=== PATIENT | male | born 1970 | race Caucasian/White ===

== ENCOUNTER → 2019-06-19 09:51 | Outpatient (CLI) | payer OTHER, MEDICARE, SELFPAY ==
--- NOTE | ~2019-06-19 | XR_ITS ---
XR knee RT min 4V DATE: 06/19/2019 10:42 INDICATION: Right knee pain TECHNIQUE: [place], standing AP, PA and lateral views COMPARISON: None FINDINGS: There is moderate tricompartment osteoarthritis. No fracture or dislocation or joint effusion, periosteal reaction or bone destruction, radiopaque int ra-articular loose body or chondrocalcinosis is detected. IMPRESSION: Tricompartment osteoarthritis Reviewed, dictated and finalized at location B. UNTS PAYABLE TECHNICIAN
--- NOTE | ~2019-06-19 | XR_ITS ---
XR shoulder RT min 2V DATE: 06/19/2019 10:42 INDICATION: Right shoulder pain TECHNIQUE: 4 views COMPARISON: None FINDINGS: No recent fracture or dislocation, periosteal reaction or bone destruction. There is osteochondroma or less likely old fracture deformity of the proximal right humeral shaft. There is benign focal 4 x 8.5 mm calcification. IMPRESSION: Probable benign osteochondroma of proximal right humeral shaft Reviewed, dictated and finalized at location B. TING CODER
--- NOTE | ~2019-06-19 | XR_ITS ---
XR knee LT min 4V DATE: 06/19/2019 10:42 INDICATION: Right knee pain TECHNIQUE: Standing AP, PA, lateral views. [place] view. COMPARISON: None FINDINGS: There is severe loss of height at the medial compartment and mild jaja-articular spurring. There is lateral jaja-articular spurring of the lateral compartment. There is jaja-articular spurring of the patellofemoral joint. No fracture or dislocation, periosteal reaction or bone destruction. Mild suprapatellar joint effusion. No radiopaque intra-articular loose body or chondrocalcinosis. IMPRESSION: Tricompartment osteoarthritis and mild joint effusion Reviewed, dictated and finalized at location B. OYEE RELATIONS ASSISTANT
== END ==
PROVIDERS: PCP Family Medicine; Visit Provider Physician Assistant
DX: M25.561 Pain in right knee (principal); M25.511 Pain in right shoulder; M17.0 Bilateral primary osteoarthritis of knee; M25.462 Effusion, left knee; D16.01 Benign neoplasm of scapula and long bones of right upper limb
CPT/HCPCS: 73030; 73564

== ENCOUNTER → 2020-02-10 14:06 | Outpatient (CLI) | payer OTHER, MEDICARE, SELFPAY ==
--- NOTE | ~2020-02-10 | XR_ITS ---
EXAMINATION: XR chest 2V EXAM DATE: 02/10/2020 14:22 INDICATION: Therapeutic drug monitoring. TECHNIQUE: Frontal and lateral projections of the chest obtained and reviewed. Comparison is made to prior examination from 09/30/2018. FINDINGS: The lungs are clear. There are no pleural effusions. The cardiomediastinal silhouette is within normal limits. There is no pneumothorax suspected. The bones and soft tissues are unremarkab le. IMPRESSION: Unremarkable chest x-ray exam. Reviewed, dictated and finalized at location A.
== END ==
PROVIDERS: PCP Family Medicine; Visit Provider Internal Medicine Rheumatology
DX: Z51.81 Encounter for therapeutic drug level monitoring (principal)
CPT/HCPCS: 71046

== ENCOUNTER → 2020-08-09 13:56 | Outpatient (CLI) | payer OTHER, MEDICARE, SELFPAY ==
--- NOTE | ~2020-08-09 | XR_ITS ---
EXAMINATION: XR elbow RT min 3V DATE: 08/09/2020 14:17 INDICATION: Right elbow pain. Strain of unspecified muscle, fascia, and tendon. TECHNIQUE: 4 views of right elbow were obtained. COMPARISON: None. FINDINGS: Bone alignment is normal. No fracture. There is mild elbow joint osteoarthritis. There are enthesophytes at the medial and lateral humeral epicondyles. No elbow joint effusion. IMPRESSION: 1. Mild elbow joint osteoarthritis. Reviewed, dictated and finalized at location A.
--- NOTE | ~2020-08-09 | XR_ITS ---
XR hip BI wo pelvis DATE: 08/09/2020 14:17 INDICATION: Hip pain TECHNIQUE: AP and lateral views of each hip COMPARISON: None FINDINGS: Bilateral posterior lower lumbar surgical fusion. Mild bilateral hip osteoarthritis. No fracture or dislocation, avascular necrosis or bone destruction of either hip is detected. The pubic symphysis and sacroiliac joints are intact. IMPRESSION: Status post posterior lower lumbar spinal fusion Mild bilateral hip osteoarthritis Reviewed, dictated and finalized at location A.
--- NOTE | ~2020-08-09 | XR_ITS ---
EXAMINATION: XR shoulder RT min 2V DATE: 08/09/2020 14:17 INDICATION: Strain images of unspecified muscle, fascia, and tendon. TECHNIQUE: 4 views of right shoulder were obtained. COMPARISON: Right shoulder radiographs 06/19/2019 FINDINGS: Bone alignment is normal. There is an old healed fracture of proximal right humeral diaphys is. No acute fracture. There is mild osteoarthritis of glenohumeral joint characterized by tiny osteo phytes. Acromioclavicular joint is normal. IMPRESSION: 1. Mild glenohumeral joint osteoarthritis. Reviewed, dictated and finalized at location A.
== END ==
PROVIDERS: PCP Family Medicine; Visit Provider Family Medicine
DX: E66.9 Obesity, unspecified (principal); M75.81 Other shoulder lesions, right shoulder; S46.911A Strain of unspecified muscle, fascia and tendon at shoulder and upper arm level, right arm, initial encounter; X58.XXXA Exposure to other specified factors, initial encounter; M16.0 Bilateral primary osteoarthritis of hip; M19.011 Primary osteoarthritis, right shoulder; M19.021 Primary osteoarthritis, right elbow
CPT/HCPCS: 73030; 73080; 73521

== ENCOUNTER → 2020-10-19 16:41 | Outpatient (CLI) | payer OTHER, MEDICARE, SELFPAY ==
--- NOTE | ~2020-10-19 | XR_ITS ---
EXAMINATION: XR toe 1st RT min 2V DATE: 10/19/2020 17:45 INDICATION: Right great toe pain. TECHNIQUE: 3 views of right great toe were obtained. COMPARISON: Right foot radiographs 11/26/2013 FINDINGS: Bone alignment is normal. No acute fracture. There are changes of arthrodesis procedure of first metatarsophalangeal joint with dorsal plate and multiple screws. Partially visualized is a scre w in third proximal, middle, and distal phalanges. Partially visualized is an arthrodesis procedure o f the subtalar joint without visible bridging bone. There is lucency around the fixation screw, consi stent with loosening. There is mild osteoarthritis of talonavicular joint. IMPRESSION: 1. Arthrodesis of first metatarsophalangeal joint. 2. Partially visualized arthrodesis procedure of the subtalar joint with lucency around the calcaneal screw, consistent with loosening. Reviewed, dictated and finalized at location A. IMPRESSION: 1. Arthrodesis of first metatarsophalangeal joint. 2. Partially visualized arthrodesis procedure of the subtalar joint with lucenc y around the calcaneal screw, consistent with loosening.
== END ==
PROVIDERS: PCP Family Medicine; Visit Provider Family Medicine
DX: M79.674 Pain in right toe(s) (principal)
CPT/HCPCS: 73660

== ENCOUNTER → 2021-02-14 14:38 | Outpatient (CLI) | payer OTHER, MEDICARE, SELFPAY ==
--- NOTE | ~2021-02-14 | XR_ITS ---
EXAMINATION: XR chest 2V 02/14/2021 14:55 INDICATION: Therapeutic drug monitoring PROCEDURE: 2 view chest COMPARISON: Comparison to multiple prior studies sequentially, with oldest reviewed study dated 11/20. FINDINGS: The lungs are clear. The cardiomediastinal silhouette is within normal limits. There are no pleural effusions. There is no pneumothorax suspected. IMPRESSION: 1: NO ACUTE CARDIOPULMONARY DISEASE. Reviewed, dictated and finalized at location B.
== END ==
PROVIDERS: PCP Family Medicine; Visit Provider Internal Medicine Rheumatology
DX: Z51.81 Encounter for therapeutic drug level monitoring (principal)
CPT/HCPCS: 71046

== ENCOUNTER 2021-11-02 05:52 | Day surgery (SDC) | payer OTHER, MEDICARE, SELFPAY ==
[2021-10-20 14:16] VITALS: BMI 35.9
[2021-11-02 06:15] VITALS: BP 140/93; PULSE 89; RESP 20; TEMP 36.9; O2SAT 96
[2021-11-02] MEDS: LACTATED RINGERS 1,000 ML 30 ML IV CONT ×2 (06:40→08:03)
[2021-11-02 06:45] LABS: Glucose Point of Care 114 mg/dl (65-105)
--- NOTE | 2021-11-02 06:45 | WPDANESEPPF ---
Anes - Initial Pre Proc Eval Procedure: Operation Date: 11/02/21 07:30 Proposed Procedures p Screening Colonoscopy - Toño Glass DO Date/Time: 11/02/21 06:45 Surgeon: Toño Glass DO Pre Op Diagnosis: Positive Cologuard Patient Data Age: 51 Gender: M Height: 1.78 m Weight: 113.5 kg Allergies Allergy/AdvReac Type Severity Reaction Status Date / Time shellfish derived Allergy Severe Hives Verified 11/02/21 06:24 lisinopril AdvReac Mild cough Verified 11/02/21 06:24 Home Medications Medication Instructions Recorded Confirmed Type allopurinol 300 mg tablet 300 mg PO DAILY 02/28/19 11/02/21 History diclofenac sodium 75 mg 75 mg PO BID 02/28/19 11/02/21 History tablet,delayed release omeprazole 20 mg capsule,delayed 20 mg PO DAILY #30 caps 04/15/19 10/20/21 Rx release metformin 1,000 mg tablet 1,000 mg PO BID #180 tabs 06/17/19 11/02/21 Rx lisinopril 20 1 tablet PO DAILY #90 tabs 07/08/19 11/02/21 Rx mg-hydrochlorothiazide 12.5 mg tablet sildenafil 50 mg tablet 50 mg PO DAILY PRN sexual activity 08/01/19 10/20/21 Rx #10 tabs atorvastatin 40 mg tablet 40 mg PO DAILY #90 tabs 12/08/19 11/02/21 Rx empagliflozin 25 mg tablet 25 mg PO DAILY #90 tabs 12/08/19 11/02/21 Rx alogliptin 25 mg tablet 25 mg PO DAILY 08/09/20 11/02/21 History metoprolol succinate 100 mg 100 mg PO DAILY 08/09/20 11/02/21 History tablet,extended release 24 hr semaglutide 0.25 mg or 0.5 mg (2 0.25 mg subcut WEEKLY 07/04/21 10/20/21 History mg/1.5 mL) subcutaneous pen injector (Ozempic) sodium sul 1.479 gram-potas ch See Rx Instructions PO .COMPLEX 10/14/21 10/20/21 Rx 0.188 gram-magnes sul 0.225 gram #24 tabs tablet (Sutab) Laboratory Tests 11/02/21 06:39 POC Capillary Glucose Pending Patient hx anesthesia problems: none Family hx anesthesia problems: none Results Review: All pre-operative results and documents have been reviewed as part of the pre-operative evaluation. [facility] Past Medical History Medical History (Updated 11/02/21 @ 06:45 by Will Brody MD) Gout Surgical History Surgical History (Updated 11/02/21 @ 06:46 by Will Brody MD) H/O adenoidectomy History of ankle surgery (08/2018) History of lumbar fusion Family History Family History Mother Diabetes mellitus Hypertension Grandparent Diabetes mellitus Family history of glaucoma Other Family history of elevated blood lipids Social History Social History Smoking status: Never smoker Alcohol intake: never Substance use type: does not use Living arrangements: with family Spiritual care concerns: No Anes - Eval Final PreProcedure Day of Procedure 11/02/21 06:45 Patient weight: obese Heart: regular rate and rhythm Lungs: clear to auscultation Airway: Mallampati scale class II Neurological: alert and oriented Last oral intake: >/= 8 hours ASA classification: III Emergent: no Anesthetic plan: proceed Anesthesia type and monitoring: general GIVS and standard monitoring Results Review: All pre-operative results and documents have been reviewed as part of the pre-operative evaluation. Informed Consent: The patient's anesthetic plan and its attendant risks and benefits were discussed with the patient/family/POA. Questions were solicited and answers provided to the satisfaction of the patient/family/POA.
--- NOTE | 2021-11-02 07:20 | PM.IMHP ---
H&P: HPI History of Present Illness Date/Time: 11/02/21 07:20 Chief Complaint: + Cologuard Narrative: 51 yo man presents for colonoscopy. He had a + cologuard test in his PCP's office. He denies any hematochezia or melena. He denies family hx of colon cancer. Review of Systems Review of Systems: All systems reviewed & are unremarkable except as noted in HPI and below Constitutional: Constitutional: Denies chills, Denies fever(s), Denies headache(s) and Denies weight loss Eyes: Eyes: Denies change in vision ENT: Denies dizziness, Denies headache(s), Denies neck mass and Denies throat swelling Cardiovascular: Cardiovascular: Denies chest pain, Denies lightheadedness and Denies dyspnea Respiratory: Respiratory: Denies cough, Denies dyspnea and Denies wheezing Gastrointestinal: Gastrointestinal: Denies abdominal pain, Denies change in bowel habits, Denies nausea and Denies vomiting Genitourinary: Genitourinary: Denies hematuria and Denies dysuria Musculoskeletal: Musculoskeletal: Reports as per HPI Integumentary/Breasts: Skin/Breast: Reports as per HPI Neurologic: Denies dizziness and Denies headache(s) Allergic/Immunologic: Allergic/Immunologic: Denies throat swelling and Denies wheezing [facility] Past Medical History Medical History (Updated 11/02/21 @ 06:45 by Will Brody MD) Gout Surgical History Surgical History (Updated 11/02/21 @ 06:46 by Will Brody MD) H/O adenoidectomy History of ankle surgery (08/2018) History of lumbar fusion Family History Family History Mother Diabetes mellitus Hypertension Grandparent Diabetes mellitus Family history of glaucoma Other Family history of elevated blood lipids Social History Social History Smoking status: Never smoker Alcohol intake: never Substance use type: does not use Living arrangements: with family Spiritual care concerns: No Meds Home Medications and Allergies Home Medications Medication Instructions Recorded Confirmed Type allopurinol 300 mg tablet 300 mg PO DAILY 02/28/19 11/02/21 History diclofenac sodium 75 mg 75 mg PO BID 02/28/19 11/02/21 History tablet,delayed release omeprazole 20 mg capsule,delayed 20 mg PO DAILY #30 caps 04/15/19 10/20/21 Rx release metformin 1,000 mg tablet 1,000 mg PO BID #180 tabs 06/17/19 11/02/21 Rx lisinopril 20 1 tablet PO DAILY #90 tabs 07/08/19 11/02/21 Rx mg-hydrochlorothiazide 12.5 mg tablet sildenafil 50 mg tablet 50 mg PO DAILY PRN sexual activity 08/01/19 10/20/21 Rx #10 tabs atorvastatin 40 mg tablet 40 mg PO DAILY #90 tabs 12/08/19 11/02/21 Rx empagliflozin 25 mg tablet 25 mg PO DAILY #90 tabs 12/08/19 11/02/21 Rx alogliptin 25 mg tablet 25 mg PO DAILY 08/09/20 11/02/21 History metoprolol succinate 100 mg 100 mg PO DAILY 08/09/20 11/02/21 History tablet,extended release 24 hr semaglutide 0.25 mg or 0.5 mg (2 0.25 mg subcut WEEKLY 07/04/21 10/20/21 History mg/1.5 mL) subcutaneous pen injector (Ozempic) sodium sul 1.479 gram-potas ch See Rx Instructions PO .COMPLEX 10/14/21 10/20/21 Rx 0.188 gram-magnes sul 0.225 gram #24 tabs tablet (Sutab) Allergies Allergy/AdvReac Type Severity Reaction Status Date / Time shellfish derived Allergy Severe Hives Verified 11/02/21 06:24 lisinopril AdvReac Mild cough Verified 11/02/21 06:24 Exam Const: General: no acute distress and alert Orientation/consciousness: patient oriented x3 HENMT: Head: normocephalic and atraumatic Ears: hearing grossly normal bilaterally General nose exam: Normal nares present Mouth: Yes Normal oral and palatal mucosa present Eyes: Periorbital: periorbital findings normal Sclera: sclerae normal EOM: EOMs intact bilaterally Neck: Neck: normal visual inspection, no lymphadenopathy and trachea midline Chest: Chest palpation & inspection: norm
[2021-11-02 08:03] VITALS: BP 103/70; PULSE 90; RESP 16; O2SAT 97
[2021-11-02 08:13] VITALS: BP 147/92; PULSE 80; RESP 16; O2SAT 97
[2021-11-02 08:23] VITALS: BP 154/100; PULSE 84; RESP 18
--- NOTE | 2021-11-02 09:06 | WPDANESPN ---
Anes - Prog Note Post-Op Date/Time: 11/02/21 09:06 Cardiovascular status: normal Respiratory status: normal Airway patency: baseline Mental status: baseline Post-Op hydration status: normal Vital Signs: Last Vital Signs Temp 36.9 C 11/02/21 06:15 Pulse 84 11/02/21 08:23 Resp 18 11/02/21 08:23 BP 154/100 H 11/02/21 08:23 Pulse Ox 97 11/02/21 08:13 O2 Del Method Room Air 11/02/21 08:23 Pain Score (VAS): 0/10 I/O: Intake & Output 11/01/21 11/02/21 11/02/21 23:59 07:59 15:59 Intake Total 500 100 Balance 500 100 11/02/21 06:39 POC Capillary Glucose 114 H Patient Feedback: Patient satisfied with anesthetic care.
== END 2021-11-02 08:32 | disposition home or self-care (01) ==
PROVIDERS: PCP Family Medicine; Visit Provider Surgery
PROC: 0DJD8ZZ Inspection of Lower Intestinal Tract, Via Natural or Artificial Opening Endoscopic (ICD-10-PCS; CPT 45378; principal; 2021-11-02 07:30)
DX: R19.5 Other fecal abnormalities (principal)
CPT/HCPCS: 45378

== ENCOUNTER 2022-03-21 10:12 | Outpatient (CLI) | payer OTHER, MEDICARE, SELFPAY ==
[2022-03-21 19:42] LABS: Kit Draw Collected
== END 2022-03-21 10:13 | disposition home or self-care (01) ==
LOC: ANHGOSHLAB 10:15
PROVIDERS: PCP Family Medicine; Visit Provider Family Medicine
DX: E11.9 Type 2 diabetes mellitus without complications (principal); E78.5 Hyperlipidemia, unspecified; I10 Essential (primary) hypertension
CPT/HCPCS: 36415

== ENCOUNTER → 2022-06-12 15:22 | Outpatient (CLI) | payer OTHER, MEDICARE, SELFPAY ==
--- NOTE | ~2022-06-12 | XR_ITS ---
EXAMINATION: XR shoulder LT min 2V DATE: 06/12/2022 15:41 INDICATION: Left shoulder pain. TECHNIQUE: 4 views of left shoulder were obtained. COMPARISON: None. FINDINGS: Bone alignment is normal. No fracture. There is mild osteoarthritis of glenohumeral joint a nd acromioclavicular joint characterized by tiny osteophytes. IMPRESSION: 1. Mild polyarticular osteoarthritis. Reviewed, dictated and finalized at location A. ER PICKER
--- NOTE | ~2022-06-12 | XR_ITS ---
EXAMINATION: XR ankle RT min 3V INDICATION: Pain, inability to flex foot TECHNIQUE: Four views of the right ankle are obtained. COMPARISON: 10/08/2017. FINDINGS: Again noted are changes of osteotomy at the distal fibular diaphysis. The distal fibula rem ains affixed to the distal tibia at the level of the lateral malleolus. A fixation screw previously s een more proximally in the distal fibular fragment has been removed. An intramedullary cornelius of the dis tia tibia has also been removed and an anterior talocalcaneal fusion screw is now present. There is n ear complete collapse of the talus. There is soft tissue swelling of ankle. Chronic changes of first metatarsophalangeal fusion are noted. There are new partially imaged phalangeal fixation screws in th e second and third toes. No definite fracture is identified. There is advanced osteoarthritis at the proximal midfoot. IMPRESSION: 1. Surgical changes as described above with near complete collapse of the talus. Reviewed, dictated and finalized at location B. LOP CUTTER IMPRESSION: 1. Surgical changes as described above with near complete collapse of the talus .
== END ==
PROVIDERS: PCP Family Medicine; Visit Provider Nurse Practitioner
DX: M25.512 Pain in left shoulder (principal); M25.571 Pain in right ankle and joints of right foot; M19.012 Primary osteoarthritis, left shoulder; Z98.890 Other specified postprocedural states
CPT/HCPCS: 73030; 73610

== ENCOUNTER 2022-08-15 08:39 | Outpatient (CLI) | payer OTHER, MEDICARE, SELFPAY ==
[2022-08-15 19:37] LABS: Alanine Aminotransferase 25 U/L (6-50); Albumin Level 4.4 g/dL (3.5-5.1); Alkaline Phosphatase 89 U/L (38-126); Anion Gap 12 mmol/L (8-16); Aspartate Amino Transferase 24 U/L (17-59); Bilirubin,Total 0.5 mg/dL (0.2-1.3); Blood Urea Nitrogen 24 mg/dL (9-20); CRP 1.6 mg/dL (<1.0); Calcium 9.4 mg/dL (8.4-10.2); Carbon Dioxide 27 mmol/L (22-30); Chloride 98 mmol/L (98-107); Creatine Kinase 180 U/L (55-170); Estimated Glomerular Filt Rate > 60; Glucose 127 mg/dL (65-110); Potassium 3.5 mmol/L (3.4-5.0); Sodium 137 mmol/L (137-145); Uric Acid 4.5 mg/dL (3.5-8.5)
[2022-08-15 19:41] LABS: Basophils Absolute Auto 0.1 K/mm3 (0.0-0.1); Basophils Percent Auto 0.7 % (0.2-1.2); Eosinophils Absolute Auto 0.3 K/mm3 (0-0.3); Eosinophils Percent Auto 4.2 % (0-4.4); Hematocrit 44.5 % (42.0-52.0); Hemoglobin 13.9 g/dL (14.0-18.0); Immature Granulocyte Absolute 0.03 K/mm3 (0.00-0.031); Immature Granulocyte Percent A 0.4 % (0-0.5); Lymphocytes Absolute Auto 1.87 K/mm3 (0.9-3.2); Lymphocytes Percent Auto 22.9 % (18.3-44.2); Mean Corpuscular HGB Conc 31.2 g/dl (32-36); Mean Corpuscular Hemoglobin 29.4 pg (26-34); Mean Corpuscular Volume 94.3 fl (80-100); Mean Platelet Volume 11.5 fl (7.4-10.4); Monocytes Absolute Auto 0.7 K/mm3 (0.1-0.6); Monocytes Percent Auto 9.1 % (2.6-8.5); Neutrophils Absolute Auto 5.1 K/mm3 (1.3-6.7); Neutrophils Percent Auto 62.7 % (45.5-73.1); Platelet Count Result 239 k/mm3 (150-375); Red Blood Count 4.72 M/mm3 (4.6-6.20); Red Cell Distribution Width 13.7 % (11.5-14.5); White Blood Count 8.2 K/mm3 (4.5-10.0)
[2022-08-15 20:09] LABS: Erythrocyte Sedimentation Rate 15 mm/hr (0-20)
[2022-08-15 21:19] LABS: Appearance Urine Clear (Clear); Bilirubin Urine Negative (Negative); Blood Urine Negative (Negative); Color Urine Yellow (Yellow); Glucose Urine UA 3+ mg/dL (Negative); Ketones Urine Negative (Negative); Leukocyte Esterase Ur Negative LEU/UL (Negative); Nitrate Urine Negative (Negative); Protein Urine Negative (Negative); Specific Grav Ur 1.027 (1.001-1.035); Urobilinogen Urine 0.2 mg/dL (<2.0); pH Urine 5.5 (5.0-9.0)
[2022-08-15 21:24] LABS: Add Urine Microscopic? NO
== END 2022-08-15 08:40 | disposition home or self-care (01) ==
LOC: ANHGOSHLAB 08:41
PROVIDERS: PCP Family Medicine; Visit Provider Internal Medicine Rheumatology
DX: M10.9 Gout, unspecified (principal); Z51.81 Encounter for therapeutic drug level monitoring
CPT/HCPCS: 36415; 80053; 81003; 82085; 82550; 82728; 84550; 85025; 85652; 86140

== ENCOUNTER 2022-10-27 09:01 | Outpatient (CLI) | payer OTHER, MEDICARE, SELFPAY ==
[2022-10-27 11:13] LABS: Kit Draw Collected
== END 2022-10-27 09:02 | disposition home or self-care (01) ==
LOC: ANHGOSHLAB 09:04
PROVIDERS: PCP Family Medicine; Visit Provider Nurse Practitioner
DX: E11.9 Type 2 diabetes mellitus without complications (principal); E55.9 Vitamin D deficiency, unspecified; E78.5 Hyperlipidemia, unspecified; M10.9 Gout, unspecified
CPT/HCPCS: 36415

== ENCOUNTER 2022-11-03 11:38 | Outpatient (CLI) | payer OTHER, MEDICARE, SELFPAY ==
[2022-11-03 12:20] LABS: Kit Draw Collected
== END 2022-11-03 11:39 | disposition home or self-care (01) ==
LOC: ANHGOSHLAB 11:39
PROVIDERS: PCP Family Medicine; Visit Provider Nurse Practitioner
DX: Z12.5 Encounter for screening for malignant neoplasm of prostate (principal)
CPT/HCPCS: 36415

== ENCOUNTER 2023-04-28 13:09 | Inpatient (IN) | payer OTHER, MEDICARE, SELFPAY ==
[2023-04-28] VITALS (16 sets, daily range): BP systolic 108–162; BP diastolic 80–112; PULSE 80–99; RESP 16–24; TEMP 36.3–36.9; O2SAT 94–100; BMI 35.5
--- NOTE | 2023-04-28 13:10 | ECG_ITS ---
Measurements Intervals [place] Rate: 93 P: 59 [place]: 163 QRS: -22 QRSD: 105 T: 79 QT: 354 QTc: 441 Interpretive Statements SINUS RHYTHM LOW QRS VOLTAGE IN PRECORDIAL LEADS [QRS DEFLECTION < 1.0 mV IN CHEST LEADS] INFERIOR MYOCARDIAL INFARCTION , POSSIBLY ACUTE [40+ ms Q WAVE AND/OR ST/T ABNORMALITY IN II/aVF] ACUTE WI NO PREVIOUS ECG AVAILABLE FOR COMPARISON Electronically Signed On 04-29-2023 14:34:44 TRANSFORMER TESTER by Jossie Son M.D.
[2023-04-28 13:30] LABS: Basophils Absolute Auto 0.1 K/mm3 (0.0-0.1); Basophils Percent Auto 0.7 % (0.2-1.2); Eosinophils Absolute Auto 0.2 K/mm3 (0-0.3); Eosinophils Percent Auto 1.5 % (0-4.4); Hemoglobin 15.2 g/dL (14.0-18.0); Immature Granulocyte Absolute 0.04 K/mm3 (0.00-0.031); Immature Granulocyte Percent A 0.3 % (0-0.5); Lymphocytes Absolute Auto 2.66 K/mm3 (0.9-3.2); Lymphocytes Percent Auto 19.2 % (18.3-44.2); Mean Corpuscular HGB Conc 31.7 g/dl (32-36); Mean Corpuscular Volume 91.4 fl (80-100); Mean Platelet Volume 10.3 fl (7.4-10.4); Monocytes Absolute Auto 0.9 K/mm3 (0.1-0.6); Monocytes Percent Auto 6.8 % (2.6-8.5); Neutrophils Absolute Auto 9.9 K/mm3 (1.3-6.7); Neutrophils Percent Auto 71.5 % (45.5-73.1); Platelet Count Result 395 k/mm3 (150-375); Red Blood Count 5.25 M/mm3 (4.6-6.20); Red Cell Distribution Width 13.7 % (11.5-14.5); White Blood Count 13.9 K/mm3 (4.5-10.0)
--- NOTE | 2023-04-28 13:37 | ED.CHESTPAIN ---
HPI - Chest Pain General Chief Complaint: Chest Pain Stated Complaint: CHEST PAIN Time Seen by Provider: 04/28/23 13:40 History of Present Illness HPI narrative: patient is a 52-year-old male presenting with chest pain. States that it started yesterday. Describes it is substernal and pressure-like. It has been fluctuating in intensity, currently a 7. He denies shortness of breath or lightheadedness or leg swelling. Has a history of hypertension, hyperlipidemia, diabetes. Does not smoke. States he is compliant with his medications. EKG from the waiting room is concerning for inferior elevations, code STEMI was called. Related Data Home Medications Medication Instructions Recorded Confirmed allopurinol 300 mg tablet 300 mg PO DAILY 02/28/19 04/28/23 diclofenac sodium 75 mg 75 mg PO BID 02/28/19 04/28/23 tablet,delayed release alogliptin 25 mg tablet 25 mg PO DAILY 08/09/20 04/28/23 metoprolol succinate 100 mg 100 mg PO DAILY 08/09/20 04/28/23 tablet,extended release 24 hr semaglutide 0.25 mg or 0.5 mg (2 0.5 mg subcut WEEKLY 11/25/21 04/29/23 mg/1.5 mL) subcutaneous pen injector ([employer]) cholecalciferol (vitamin D3) 50 50 mcg PO BID 03/20/22 04/28/23 mcg (2,000 unit) tablet empagliflozin 25 mg tablet 12.5 mg PO DAILY 04/28/23 04/28/23 lisinopril 20 1 tablet PO BID 04/28/23 04/28/23 mg-hydrochlorothiazide 12.5 mg tablet omeprazole 20 mg capsule,delayed 40 mg PO DAILY 04/28/23 04/28/23 release Allergies Allergy/AdvReac Type Severity Reaction Status Date / Time shellfish derived Allergy Severe Hives Verified 04/28/23 14:20 lisinopril AdvReac Mild cough Verified 04/28/23 14:20 Review of Systems Review of Systems: All systems reviewed & are unremarkable except as noted in HPI and below PMFSH Past Medical History Medical History Acute right ankle pain Adult-onset Still's disease Benign hypertension Dysmetabolic syndrome X Encounter for immunization (01/04/18) Essential (primary) hypertension Gout Metabolic syndrome Mixed hyperlipidemia Other abnormal glucose Other and unspecified hyperlipidemia Other obesity due to excess calories Skin ulcer, limited to breakdown of skin Type 2 diabetes mellitus with hyperglycemia Type 2 diabetes mellitus without complications URI, acute Surgical History Surgical History H/O adenoidectomy History of ankle surgery (08/2018) History of lumbar fusion Family History Family History Mother Diabetes mellitus Hypertension Grandparent Diabetes mellitus Family history of glaucoma Other Family history of elevated blood lipids Social History Social History Smoking status: Never smoker Alcohol intake: former Substance use: never Substance use type: does not use Do You Feel Safe in your Home?: Yes Lack of Transportation: No Lack of Food: Never True Current Housing: I Have Housing Concerned About Future Housing: No Difficulty Paying Gas/Electric Bills: No Difficulty Paying for Meds: No Currently Unemployed: No Education: Associate Degree Difficulty w/ Childcare or Family Care: No Living arrangements: with family Spiritual care concerns: No Exam Narrative: GENERAL: In no acute distress, pleasant and cooperative HEAD: Normocephalic, atraumatic. EYES: PERRLA and EOMI. ENT: grossly unremarkable NECK: Supple. CHEST: Clear to auscultation. No respiratory distress. HEART: Regular rate and rhythm. No murmur heard. Normal peripheral pulses. ABDOMEN: Soft, nontender, nondistended EXTREMITIES: Normal range of motion. No edema. SKIN: Warm, dry, no rash. NEURO: Alert and oriented x3. PSYCH: Normal mood and affect. Course Vital Signs Vital signs: Vital Signs Temperature 97.4 F L 04/28/23 13:1
[2023-04-28 13:40] LABS: INR 0.9; Prothrombin Time 12.8 Seconds (11.1-14.7)
[2023-04-28 13:42] LABS: Alanine Aminotransferase 29 U/L (6-50); Albumin Level 4.7 g/dL (3.5-5.1); Alkaline Phosphatase 80 U/L (38-126); Anion Gap 16 mmol/L (8-16); Aspartate Amino Transferase 37 U/L (17-59); Bilirubin,Total 0.6 mg/dL (0.2-1.3); Blood Urea Nitrogen 18 mg/dL (9-20); Calcium 9.6 mg/dL (8.4-10.2); Carbon Dioxide 25 mmol/L (22-30); Chloride 98 mmol/L (98-107); Estimated CRCL calculation 79 ml/min; Estimated Glomerular Filt Rate > 60; Glucose 192 mg/dL (65-110); Lipase 164 U/L (23-300); Potassium 4.1 mmol/L (3.4-5.0); Sodium 139 mmol/L (137-145)
[2023-04-28] MEDS: TICAGRELOR 90 MG TABLET 180 MG PO (13:44)
[2023-04-28] MEDS: ASPIRIN 81 MG CHEWABLE TABLET 324 MG PO (13:44)
[2023-04-28] MEDS: HEPARIN SODIUM 5,000 UNITS/ML VIAL 5000 UNITS IV PUSH (13:45)
--- NOTE | 2023-04-28 14:11 | PM.IMHP ---
H&P: HPI History of Present Illness Date/Time: 04/28/23 14:11 Chief Complaint: Chest pain Narrative: This is a 52 year old male with hypertension, hyperlipidemia, type 2 diabetes mellitus, obesity who presented to the ER with chest pain. Chest pain first began yesterday morning around 8AM, was intermittent, however became more severe this morning. EKG obtained upon presentation shows acute inferior STEMI with Q-waves already present in the inferior leads. factory laborer activated for STEMI. Review of Systems Review of Systems: All systems reviewed & are unremarkable except as noted in HPI and below (HPI) [facility] Past Medical History Medical History Acute right ankle pain Adult-onset Still's disease Benign hypertension Dysmetabolic syndrome X Encounter for immunization (01/04/18) Essential (primary) hypertension Gout Metabolic syndrome Mixed hyperlipidemia Other abnormal glucose Other and unspecified hyperlipidemia Other obesity due to excess calories Skin ulcer, limited to breakdown of skin Type 2 diabetes mellitus with hyperglycemia Type 2 diabetes mellitus without complications URI, acute Surgical History Surgical History H/O adenoidectomy History of ankle surgery (08/2018) History of lumbar fusion Family History Family History Mother Diabetes mellitus Hypertension Grandparent Diabetes mellitus Family history of glaucoma Other Family history of elevated blood lipids Social History Social History Smoking status: Never smoker Alcohol intake: never Substance use type: does not use Lack of Transportation: No Lack of Food: Never True Current Housing: I Have Housing Concerned About Future Housing: No Difficulty Paying Gas/Electric Bills: Decline to Answer Difficulty Paying for Meds: No Currently Unemployed: No Education: Associate Degree Difficulty w/ Childcare or Family Care: No Living arrangements: with family Spiritual care concerns: No Meds Home Medications and Allergies Home Medications Medication Instructions Recorded Confirmed Type allopurinol 300 mg tablet 300 mg PO DAILY 02/28/19 11/03/22 History diclofenac sodium 75 mg 75 mg PO BID 02/28/19 11/03/22 History tablet,delayed release omeprazole 20 mg capsule,delayed 20 mg PO DAILY #30 caps 04/15/19 11/03/22 Rx release metformin 1,000 mg tablet 1,000 mg PO BID #180 tabs 06/17/19 11/03/22 Rx lisinopril 20 1 tablet PO DAILY #90 tabs 07/08/19 11/03/22 Rx mg-hydrochlorothiazide 12.5 mg tablet atorvastatin 40 mg tablet 40 mg PO DAILY #90 tabs 12/08/19 11/03/22 Rx empagliflozin 25 mg tablet 25 mg PO DAILY #90 tabs 12/08/19 11/03/22 Rx alogliptin 25 mg tablet 25 mg PO DAILY 08/09/20 11/03/22 History metoprolol succinate 100 mg 100 mg PO DAILY 08/09/20 11/03/22 History tablet,extended release 24 hr semaglutide 0.25 mg or 0.5 mg (2 0.5 mg subcut WEEKLY 11/25/21 11/03/22 History mg/1.5 mL) subcutaneous pen injector ([employer]) cholecalciferol (vitamin D3) 50 50 mcg PO BID 03/20/22 11/03/22 History mcg (2,000 unit) tablet diclofenac sodium 3 % topical gel 1 applic topical BID 03/20/22 11/03/22 History sildenafil 50 mg tablet 50 mg PO DAILY PRN sexual activity 11/03/22 11/03/22 Rx #10 tabs Allergies Allergy/AdvReac Type Severity Reaction Status Date / Time shellfish derived Allergy Severe Hives Verified 04/28/23 13:15 lisinopril AdvReac Mild cough Verified 04/28/23 13:15 Vital Signs Vital Signs - 24 hr 04/28/23 13:13 04/28/23 13:49 04/28/23 13:50 Temperature 36.3 C L Pulse Rate 99 97 Respiratory Rate 20 Blood Pressure 162/102 H Pulse Oximetry 100 100 Oxygen Delivery Room Air Room Air 04/28/23 13:50 Temperature Pulse Rate 98 Respiratory Rate 19 Blood Pressure 16
--- NOTE | 2023-04-28 14:15 | WPDMODSED ---
Moderate Sedation Note-Pt Data Patient Data Diagnosis: Inferior STEMI Present Complaint: Inferior STEMI Procedure to be performed/Plan: Primary PCI Allergies Allergy/AdvReac Type Severity Reaction Status Date / Time shellfish derived Allergy Severe Hives Verified 04/28/23 13:15 lisinopril AdvReac Mild cough Verified 04/28/23 13:15 Home Medications Medication Instructions Recorded Confirmed Type allopurinol 300 mg tablet 300 mg PO DAILY 02/28/19 11/03/22 History diclofenac sodium 75 mg 75 mg PO BID 02/28/19 11/03/22 History tablet,delayed release omeprazole 20 mg capsule,delayed 20 mg PO DAILY #30 caps 04/15/19 11/03/22 Rx release metformin 1,000 mg tablet 1,000 mg PO BID #180 tabs 06/17/19 11/03/22 Rx lisinopril 20 1 tablet PO DAILY #90 tabs 07/08/19 11/03/22 Rx mg-hydrochlorothiazide 12.5 mg tablet atorvastatin 40 mg tablet 40 mg PO DAILY #90 tabs 12/08/19 11/03/22 Rx empagliflozin 25 mg tablet 25 mg PO DAILY #90 tabs 12/08/19 11/03/22 Rx alogliptin 25 mg tablet 25 mg PO DAILY 08/09/20 11/03/22 History metoprolol succinate 100 mg 100 mg PO DAILY 08/09/20 11/03/22 History tablet,extended release 24 hr semaglutide 0.25 mg or 0.5 mg (2 0.5 mg subcut WEEKLY 11/25/21 11/03/22 History mg/1.5 mL) subcutaneous pen injector (Ozempic) cholecalciferol (vitamin D3) 50 50 mcg PO BID 03/20/22 11/03/22 History mcg (2,000 unit) tablet diclofenac sodium 3 % topical gel 1 applic topical BID 03/20/22 11/03/22 History sildenafil 50 mg tablet 50 mg PO DAILY PRN sexual activity 11/03/22 11/03/22 Rx #10 tabs Sedation/Anesthesia: No previous sedation/anesthesia problems (including family history). [facility] Past Medical History Medical History Acute right ankle pain Adult-onset Still's disease Benign hypertension Dysmetabolic syndrome X Encounter for immunization (01/04/18) Essential (primary) hypertension Gout Metabolic syndrome Mixed hyperlipidemia Other abnormal glucose Other and unspecified hyperlipidemia Other obesity due to excess calories Skin ulcer, limited to breakdown of skin Type 2 diabetes mellitus with hyperglycemia Type 2 diabetes mellitus without complications URI, acute Surgical History Surgical History H/O adenoidectomy History of ankle surgery (08/2018) History of lumbar fusion Family History Family History Mother Diabetes mellitus Hypertension Grandparent Diabetes mellitus Family history of glaucoma Other Family history of elevated blood lipids Social History Social History Smoking status: Never smoker Alcohol intake: never Substance use type: does not use Lack of Transportation: No Lack of Food: Never True Current Housing: I Have Housing Concerned About Future Housing: No Difficulty Paying Gas/Electric Bills: Decline to Answer Difficulty Paying for Meds: No Currently Unemployed: No Education: Associate Degree Difficulty w/ Childcare or Family Care: No Living arrangements: with family Spiritual care concerns: No Mod Sed Physical Exam Physical Exam Pre Procedural Exam: Normal: Appearance, Lungs, Heart Rate, Heart Rhythm, Neuro Exam, Abdomen, Extremities and Skin Hours since solid foods: 0 Hours since liquid intake: 0 Mallampati Classification: class III Internal Medicine - PN: Obj Da Vital Signs Vital Signs: Vital Signs - 24 hr 04/28/23 13:13 04/28/23 13:49 04/28/23 13:50 Temperature 36.3 C L Pulse Rate 99 97 Respiratory Rate 20 Blood Pressure 162/102 H Pulse Oximetry 100 100 Oxygen Delivery Room Air Room Air 04/28/23 13:50 04/28/23 14:11 04/28/23 13:50 Temperature Pulse Rate 98 96 97 Respiratory Rate 19 18 16 Blood Pressure 162/112 H 149/105 H 162/112 H Pulse Oximetry 99 98 98 Oxygen Delive
--- NOTE | 2023-04-28 14:48 | ECG_ITS ---
Measurements Intervals [place] Rate: 90 P: 64 CO: 164 QRS: 14 QRSD: 106 T: 83 QT: 366 QTc: 448 Interpretive Statements SINUS RHYTHM POSSIBLE LEFT ATRIAL ENLARGEMENT [-0.1mV P WAVE IN V1/V2] POSSIBLE ANTERIOR MYOCARDIAL INFARCTION , PROBABLY OLD [30 ms Q WAVE IN V3/V4, OR R < 0.2 mV IN V4] INFERIOR MYOCARDIAL INFARCTION , POSSIBLY ACUTE [40+ ms Q WAVE AND/OR ST/T ABNORMALITY IN II/aVF] ACUTE [place] COMPARED TO ECG 04/28/2023 13:18:15 NO SIGNIFICANT CHANGES Electronically Signed On 04-29-2023 14:34:57 MEDICAL BILLING CLERK by Jossie Son M.D.
[2023-04-28 15:00] LABS: Cholesterol 180 mg/dL (0-200); HDL Direct 35 mg/dL; Triglycerides 403 mg/dL (<150)
[2023-04-28 15:05] LABS: Hemoglobin A1C 7.3 % (<5.7)
[2023-04-28 15:11] LABS: LDL Cholesterol Direct 83 mg/dL
--- NOTE | 2023-04-28 15:43 | WPDCARDPROC ---
Cardiac Cath Procedure Note Date of procedure:: 04/28/23 Performing physician:: CATHETERIZATION LABORATORY REPORT Procedure Date: 04/28/2023 Keg Raiser: Jossie Son M.D., [facility]? Referring Physician: Josiane Terrazas M.D. ([facility]) ? Anesthesia: Versed and Fentanyl were ordered and given in my presence at 14:37, procedure ended at 15:25. Supervision of nurse monitored moderate sedation with Versed and Fentanyl was provided for 48 minutes. Total of Versed 1mg and Fentanyl 50mcg were administered by the Car Rental Sales Assistant RN Ramu Villanueva. Pre-op Diagnosis: Inferior STEMI Post-op Diagnosis: 1. 99% subtotal occlusion of the mid RCA s/p successful PCI with RAMIREZ x 2 2. Moderate LAD disease. Moderate LCX disease. 3. Left ventricular end-diastolic pressure of 10mmHg 4. Left ventricular angiogram with preserved LVEF, hypokinesis of the basal inferior wall Procedure(s): 1. Moderate sedation 2. Ultrasound-guided access of the right common femoral artery 3. Coronary angiography 4. Left heart cath 5. Left ventricular angiogram 6. PCI of the mid RCA with RAMIREZ x 2 placed in an overlapping fashion. 7. Angioseal closure of the right common femoral artery Access Site: Right common femoral artery (Radial access was not pursued as we are out of TR bands) Brief History and Clinical Indications: Patient is a 52 year old male with hypertension, hyperlipidemia, diabetes mellitus, obesity who is referred for emergent cardiac catheterization for an inferior STEMI. All risks, benefits and alternatives to left heart catheterization with or without percutaneous coronary intervention was discussed at length with the patient. Risk of complications including but not limited to bleeding, infection, arrhythmia, stroke, worsening kidney function, blood loss, groin hematoma, limb loss, emergency coronary artery bypass grafting, and even were discussed with the patient and all questions were answered. The patient understood and wished to proceed. Time out called, patient name, date of , medical record number, allergies, procedure performed, identify Keg Raiser, patient and staff member concurred with accurate data, procedure carried on. Findings: LEFT HEART CATHETERIZATION FINDINGS: 1. Left main: The left main coronary artery is widely patent without any significant obstructive disease. 2. Left anterior descending: There is a moderate stenosis in the proximal-mid LAD. 3. Left circumflex: The mid LCX has moderate disease. The ostium of the OM branch has mild disease. The left circumflex is co-dominant. 4. Right coronary artery: The RCA is co-dominant. Tortuous vessel. The mid portion has a 99% subtotal occlusion with JADE 2 flow to the distal vessel. 5. Left ventricle: A. End-diastolic pressure 10mmHg. B. LV gram: LVEF 65-70%. There is severe hypokinesis of the basal inferior wall. C. No significant gradient across aortic valve on catheter pullback. Description of Procedure and PCI: Patient transferred to union laborer room. Prepped and draped in usual sterile fashion. 2% lidocaine in right groin area. Micropuncture needle used to access right common femoral artery with Seldinger technique under fluoroscopic and ultrasound guidance. J wire advanced, micropuncture cannula placed. Right iliofemoral angiogram performed, access confirmed and micropuncture cannula exchanged for 6-FR sheath. 5F FL 4 diagnostic catheter engaged Left Main Coronary Artery. Multiple orthogonal angiogram obtained and reviewed. Angiomax used for anticoagulation. 6F FR 4 guide catheter was used to intubate the RCA. 0.014 [place] coronary wire was passed in to the distal RCA. The lesion was pre-dilated with a 2.5mm x 15mm balloon inflated to high [place]. Attempted to advance IVUS catheter distal to the lesion, however, IVUS catheter could not advance without losing guide support. The guide catheter ended up disengaged, and wire access was lost. The guide catheter w
[2023-04-28] MEDS: SODIUM CHLORIDE 0.9% IV 1,000 ML 125 ML IV CONT (16:36)
[2023-04-28] MEDS: METOPROLOL SUCCINATE EXT REL 100 MG TABCR PO (16:37)
[2023-04-28] MEDS: ATORVASTATIN 40 MG TABLET 80 MG PO (16:37)
--- NOTE | 2023-04-28 16:47 | ADMGEN ---
This patient, Luc Huff, was admitted to Intensive Care Unit-1. Patient/family oriented to hospital policies and general routines including ID bracelet, bed and alarms, visiting hours, pain management, procedures, bathroom and other care routines, personal items, smoking policy, room service/diet, and visiting hours. Information on how to activate the Rapid Response Team has been discussed. Patient/Family are encouraged to report perceived risks to care and to ask questions if they do not understand what they are told or what they should do.
[2023-04-28 18:16] LABS: Glucose Point of Care 127 mg/dl (65-105)
[2023-04-28 20:26] LABS: Glucose Point of Care 129 mg/dl (65-105)
[2023-04-28] MEDS: TICAGRELOR 90 MG TABLET PO (21:02)
[2023-04-29] VITALS (15 sets, daily range): BP systolic 117–134; BP diastolic 86–98; PULSE 74–96; RESP 13–30; TEMP 36.9–37.1; O2SAT 93–99
[2023-04-29 03:49] LABS: Basophils Absolute Auto 0.1 K/mm3 (0.0-0.1); Basophils Percent Auto 0.8 % (0.2-1.2); Eosinophils Absolute Auto 0.3 K/mm3 (0-0.3); Eosinophils Percent Auto 2.5 % (0-4.4); Hematocrit 42.4 % (42.0-52.0); Hemoglobin 13.3 g/dL (14.0-18.0); Immature Granulocyte Absolute 0.04 K/mm3 (0.00-0.031); Immature Granulocyte Percent A 0.3 % (0-0.5); Lymphocytes Absolute Auto 3.15 K/mm3 (0.9-3.2); Lymphocytes Percent Auto 27.1 % (18.3-44.2); Mean Corpuscular HGB Conc 31.4 g/dl (32-36); Mean Corpuscular Hemoglobin 28.8 pg (26-34); Mean Corpuscular Volume 91.8 fl (80-100); Mean Platelet Volume 10.4 fl (7.4-10.4); Monocytes Absolute Auto 1.2 K/mm3 (0.1-0.6); Monocytes Percent Auto 10.2 % (2.6-8.5); Neutrophils Absolute Auto 6.9 K/mm3 (1.3-6.7); Neutrophils Percent Auto 59.1 % (45.5-73.1); Platelet Count Result 333 k/mm3 (150-375); Red Blood Count 4.62 M/mm3 (4.6-6.20); Red Cell Distribution Width 13.8 % (11.5-14.5); White Blood Count 11.6 K/mm3 (4.5-10.0)
[2023-04-29 04:07] LABS: Alanine Aminotransferase 25 U/L (6-50); Albumin Level 4.1 g/dL (3.5-5.1); Alkaline Phosphatase 65 U/L (38-126); Anion Gap 8 mmol/L (8-16); Aspartate Amino Transferase 50 U/L (17-59); Bilirubin,Total 0.9 mg/dL (0.2-1.3); Blood Urea Nitrogen 17 mg/dL (9-20); Calcium 9.2 mg/dL (8.4-10.2); Carbon Dioxide 30 mmol/L (22-30); Chloride 100 mmol/L (98-107); Estimated CRCL calculation 86 ml/min; Estimated Glomerular Filt Rate > 60; Glucose 113 mg/dL (65-110); Potassium 4.6 mmol/L (3.4-5.0); Sodium 138 mmol/L (137-145)
--- NOTE | 2023-04-29 08:02 | WPDCNINT ---
Assessment and Plan Assessment and plan (1) STEMI (ST elevation myocardial infarction): Code(s): I21.3 - ST elevation (STEMI) myocardial infarction of unspecified site Status: Acute Assessment and Plan: Patient presented with substernal intermittent chest pain started day prior to the presentation in the ER. EKG in the ED showed acute inferior ST-elevation PA with Q-waves present in the inferior leads. -STEMI S/p cardiac cath, 99% subtotal occlusion of the mid RCA s/p successful PCI with RAMIREZ x 2 to mid RCA. LV gram: LVEF 65-70%. There is severe hypokinesis of the basal inferior wall -continue aspirin, atorvastatin, metoprolol, Brilinta -cardiology following the patient (2) Hypertension: Code(s): I10 - Essential (primary) hypertension Status: Acute Assessment and Plan: Continue metoprolol -blood pressures have been stable (3) Hyperlipidemia: Code(s): E78.5 - Hyperlipidemia, unspecified Status: Acute Assessment and Plan: Continue atorvastatin Plan DVT prophylaxis: Status post cardiac catheterization Stress ulcer prophylaxis: Not indicated Nutrition: Heart healthy diet Code Status: Full code Critical Care Time Spent: 46 minutes Patient may transfer out of the ICU if okay with Cardiology Due to a high probability of clinically significant, life threatening deterioration, the patient required my highest level of preparedness to intervene emergently and I personally spent this critical care time directly and personally managing the patient. This critical care time included obtaining a history; examining the patient; pulse oximetry; ordering and review of studies; arranging urgent treatment with development of a management plan; evaluation of patient's response to treatment; frequent reassessment; and discussions with other providers. It was exclusive of separately billable procedures and treating other patients and teaching time. Please see Assessment and Plan section and the rest of the note for further information on patient assessment and treatment This dictation may have been done utilizing a voice recognition system. Attempts have been made to correct errors. However, there may be uncorrected grammatical, spelling, and recognitions errors present. Geriatric Case Manager Consult Note Consult date: 04/29/23 Reason for consult: STEMI S/p cardiac cath, 99% subtotal occlusion of the mid RCA s/p successful PCI with RAMIREZ x 2 to mid RCA. LV gram: LVEF 65-70%. There is severe hypokinesis of the basal inferior wall HPI: Luc Huff is a 52 year old male with PMH of hypertension, hyperlipidemia, type 2 diabetes mellitus, obesity who presented to the ER with sub sternal chest pain which was intermittent. Denied SOB or diaphoresis. STEMI was called in the ER, S/p cardiac cath, 99% subtotal occlusion of the mid RCA s/p successful PCI with RAMIREZ x 2 to mid RCA. LV gram: LVEF 65-70%. There is severe hypokinesis of the basal inferior wall. Pt was transferred to the ICU for further management Patient seen and examined in the ICU, is awake, alert, oriented. Denies any chest pain, shortness of breath, diaphoresis, nausea, vomiting. Hemodynamically stable. Good urine output, afebrile. No issues overnight Review of Systems Review of Systems: All systems reviewed & are unremarkable except as noted in HPI and below PMFSH Past Medical History Medical History Acute right ankle pain Adult-onset Still's disease Benign hypertension Dysmetabolic syndrome X Encounter for immunization (01/04/18) Essential (primary) hypertension Gout Metabolic syndrome Mixed hyperlipidemia Other abnormal glucose Other and unspecified hyperlipidemia Other obesity due to excess calories Skin ulcer, limited to breakdown of skin Type 2 diabetes mellitus with hyperglycemia Type 2 diabetes mellitus without complications URI, acute Surgical History Surgical History (Revie
[2023-04-29 08:08] LABS: Glucose Point of Care 137 mg/dl (65-105)
[2023-04-29] MEDS: EMPAGLIFLOZIN 25 MG TABLET PO (08:27)
[2023-04-29] MEDS: TICAGRELOR 90 MG TABLET PO (08:27)
[2023-04-29] MEDS: PANTOPRAZOLE 40 MG TABLET PO (08:27)
[2023-04-29] MEDS: ATORVASTATIN 40 MG TABLET 80 MG PO (08:27)
[2023-04-29] MEDS: ASPIRIN 81 MG ENTERIC TABLET PO (08:28)
[2023-04-29] MEDS: allopurinoL 300 MG TABLET PO (09:12)
[2023-04-29] MEDS: METOPROLOL SUCCINATE EXT REL 100 MG TABCR PO (09:12)
--- NOTE | 2023-04-29 10:24 | PM.DS ---
DS: Admitting Diagnosis Discharge Date 04/29/2023 Admitting Diagnosis Inferior STEMI DS: Discharge Diagnosis Discharge Diagnosis (1) STEMI (ST elevation myocardial infarction): Code(s): I21.3 - ST elevation (STEMI) myocardial infarction of unspecified site Status: Acute (2) Hypertension: Code(s): I10 - Essential (primary) hypertension Status: Acute (3) Hyperlipidemia: Code(s): E78.5 - Hyperlipidemia, unspecified Status: Acute (4) Diabetes mellitus: Code(s): E11.9 - Type 2 diabetes mellitus without complications Status: Acute DS: Summary Hospital Course Hospital Course: This is a 52 year old male with hypertension, hyperlipidemia, type 2 diabetes mellitus, obesity who presented to the ER with chest pain. Chest pain first began 04/27 morning around 8AM, was intermittent, however became more severe morning of 04/28. EKG obtained upon presentation showed acute inferior STEMI with Q-waves already present in the inferior leads. open hearth furnace laborer activated for STEMI. Cardiac catheterization showed: 1. 99% subtotal occlusion of the mid RCA s/p successful PCI with RAMIREZ x 2 2. Moderate LAD disease. Moderate LCX disease. 3. Left ventricular end-diastolic pressure of 10mmHg 4. Left ventricular angiogram with preserved LVEF, hypokinesis of the basal inferior wall Patient to be on ASA and Brilinta. ASA therapy indefinitely. Brilinta for at least 1 year. Increased his home Atorvastatin dose to 80mg. Patient is on Diclofenac at home, which he states he cannot stop. Discussed that with being on DAPT and along with Diclofenac, he will be at increased risk of bleeding. If he does have bleeding issues, we will not be able to stop his DAPT at all and he will need to discuss with his physicians regarding an alternative medication to Diclofenac. Patient understands and will closely monitor for any bleeding. Recommend outpatient sleep study for evaluation of MCKENZIE. Will arrange close follow up in our office. For the left coronary system disease, can consider ischemia/symptom guided intervention as an outpatient. Status at Discharge Functional status at discharge: independent ambulation Time Spent with Patient Time attestation: Total time spent providing and/or coordinating discharge services: Exam Const: General: comfortable and no acute distress HENMT: Mouth: Yes moist mucous membranes Eyes: General: appearance normal, both eyes and all related structures Sclera: sclerae normal Neck: Neck: supple Resp: Effort & Inspection: normal respiratory effort Auscultation: clear to auscultation bilaterally Cardio: Rate: regular rate Rhythm: regular rhythm Heart sounds: no murmurs Skin: General skin exam: normal color Psych: Mental Status: mental status grossly normal Affect: normal affect DS: Data Data Completed and Pending Labs on day of discharge: Labs from last 24 hours 04/29/23 04/29/23 04/28/23 08:02 03:28 20:20 WBC 11.6 H RBC 4.62 Hgb 13.3 L Hct 42.4 MCV 91.8 MCH 28.8 MCHC 31.4 L RDW 13.8 Plt Count 333 MPV 10.4 Immature Gran % (Auto) 0.3 Neut % (Auto) 59.1 Lymph % (Auto) 27.1 [place] % (Auto) 10.2 H Eos % (Auto) 2.5 Baso % (Auto) 0.8 Lymph # (Auto) 3.15 [place] # (Auto) 1.2 H Eos # (Auto) 0.3 Baso # (Auto) 0.1 Abs Immat Gran (auto) 0.04 H Absolute Neuts (auto) 6.9 H Absolute Nucleated RBC 0.0 Nucleated RBC % 0.0 PT INR APTT Sodium 138 Potassium 4.6 Chloride 100 Carbon Dioxide 30 Anion Gap 8 BUN 17 Creatinine 1.10 Estim Creat Clear Calc 86 Estimated GFR > 60 Glucose 113 H POC Capillary Glucose 137 H 129 H Hemoglobin A1c Calcium 9.2 Total Bilirubin 0.9 AST 50 ALT 25 Alkaline Phosphatase 65 Troponin I Total Protein 7.0 Albumin 4.1 Triglycerides Cholesterol LDL Cholesterol Direct HDL Direct Lipase TSH
== END 2023-04-29 11:13 | disposition home or self-care (01) | DRG 322 ==
LOC: ANHED 14:01 → ANHICU 14:06
PROVIDERS: Emergency Medicine; Admitting Provider Internal Medicine; Emergency Provider Emergency Medicine; PCP Family Medicine; Visit Provider Internal Medicine
PROC: 4A023N7 Measurement of Cardiac Sampling and Pressure, Left Heart, Percutaneous Approach (ICD-10-PCS; CPT 93452; principal; 2023-04-28 14:15)
PROC: 4A023N7 Measurement of Cardiac Sampling and Pressure, Left Heart, Percutaneous Approach (ICD-10-PCS; 2023-04-28 14:15)
PROC: 4A023N7 Measurement of Cardiac Sampling and Pressure, Left Heart, Percutaneous Approach (ICD-10-PCS; 2023-04-28 14:15)
PROC: 4A023N7 Measurement of Cardiac Sampling and Pressure, Left Heart, Percutaneous Approach (ICD-10-PCS; 2023-04-28 14:15)
DX: I21.19 ST elevation (STEMI) myocardial infarction involving other coronary artery of inferior wall (principal); I25.119 Atherosclerotic heart disease of native coronary artery with unspecified angina pectoris; I10 Essential (primary) hypertension; E88.810 Metabolic syndrome; E66.09 Other obesity due to excess calories; E78.5 Hyperlipidemia, unspecified; E11.9 Type 2 diabetes mellitus without complications; Z79.84 Long term (current) use of oral hypoglycemic drugs; Z79.85 Long-term (current) use of injectable non-insulin antidiabetic drugs
CPT/HCPCS: 36415; 80053; 80061; 82948; 83036; 83690; 84443; 84484; 85025; 85610; 85730; 86850; 86900; 86901; 92978; 93005; 93458; 99291; A9270; C1725; C1753; C1760; C1769; C1874; C1887; C1894; C9606; G0269; J0583; J1644; J2250; J3010; J7030; J7040

== ENCOUNTER 2023-08-14 08:53 | Outpatient (RCR) | payer OTHER, MEDICARE, SELFPAY ==
[2023-08-17 14:50] LABS: Kit Draw Collected
== END 2023-11-12 23:59 | disposition home or self-care (01) ==
LOC: ANHGOSHLAB 08:53
PROVIDERS: PCP Family Medicine; Visit Provider Internal Medicine Rheumatology
DX: M06.1 Adult-onset Still's disease (principal); M10.9 Gout, unspecified
CPT/HCPCS: 36415

== ENCOUNTER 2023-08-17 10:26 | Outpatient (CLI) | payer OTHER, MEDICARE, SELFPAY ==
[2023-08-20 16:53] LABS: Kit Draw Collected
== END 2023-08-17 10:27 | disposition home or self-care (01) ==
LOC: ANHGOSHLAB 10:28
PROVIDERS: PCP Family Medicine; Visit Provider Internal Medicine
DX: I25.10 Atherosclerotic heart disease of native coronary artery without angina pectoris (principal)
CPT/HCPCS: 36415

== ENCOUNTER 2023-10-26 09:05 | Outpatient (CLI) | payer OTHER, MEDICARE, SELFPAY ==
[2023-10-30 15:14] LABS: Kit Draw Collected
== END 2023-10-26 09:06 | disposition home or self-care (01) ==
LOC: ANHGOSHLAB 09:11
PROVIDERS: PCP Family Medicine; Visit Provider Family Medicine
DX: E78.5 Hyperlipidemia, unspecified (principal); I10 Essential (primary) hypertension; E11.9 Type 2 diabetes mellitus without complications; E66.9 Obesity, unspecified
CPT/HCPCS: 36415

== ENCOUNTER 2024-12-19 11:52 | Outpatient (CLI) | payer OTHER, MEDICARE, SELFPAY ==
--- NOTE | ~2024-12-19 | XR_ITS ---
XR hand LT 2V 12/19/2024 12:13 Indication: Still's disease. Procedure: 2 views left hand Comparison: 11/20/2017 Findings: There is stable polyarticular osteoarthritis of the wrist and hand most severe at the second and third distal interphalangeal joints as well as the triscaphe and radiocarpal joints. No acute fracture or traumatic malalignment. 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 Reviewed, dictated and finalized at location O. 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
--- NOTE | ~2024-12-19 | XR_ITS ---
XR hand RT 2V 12/19/2024 12:13 Indication: Adult onset still's disease Procedure: 2 views right hand Comparison: 11/20/2017 Findings: There is stable mild-severe polyarticular osteoarthritis of the right hand and wrist. Findings most advanced at the third DIP joint as well as the radiocarpal joint. No acute fracture or traumatic malalignment. Impression: 1: Stable mild-severe polyarticular osteoarthritis. Reviewed, dictated and finalized at location O. Impression: 1: Stable mild-severe polyarticular osteoarthritis.
--- NOTE | ~2024-12-19 | XR_ITS ---
CHEST RADIOGRAPH, PA AND LATERAL CLINICAL HISTORY: Adult onset Still's disease . COMPARISON: 02/14/2021 TECHNIQUE: PA and lateral views of the chest. FINDINGS The cardiomediastinal silhouette is unremarkable. Specifically, without plain film evidence to suggest the presence of significant mediastinal lymphadenopathy when compared with prior imaging. The lungs are clear. IMPRESSION: No focal infiltrate or effusion. Reviewed, dictated and finalized at location A.
== END 2024-12-19 11:53 | disposition home or self-care (01) ==
LOC: MICIMG 11:55
PROVIDERS: PCP Family Medicine; Visit Provider Internal Medicine Rheumatology
DX: M06.1 Adult-onset Still's disease (principal); M19.041 Primary osteoarthritis, right hand; M19.032 Primary osteoarthritis, left wrist; M19.042 Primary osteoarthritis, left hand
CPT/HCPCS: 71046; 73120